=== PATIENT | male | born 1985 | race Caucasian/White ===

== ENCOUNTER 2016-07-19 23:58 | Emergency (ER) | payer OTHER ==
--- NOTE | 2016-07-20 00:24 | PDOC ---
History of Present Illness - General Stated Complaint: FATIGUE/LACK OF SLEEP Past History - Past Medical History Allergies/Adverse Reactions: Allergies Allergy/AdvReac Type Severity Reaction Status Date / Time morphine Allergy Unknown Rash Verified 07/20/16 01:24 Home Medications: Ambulatory Orders NK [No Known Home Medication] 07/20/16 ED Treatment Course - LABORATORY CBC & Chemistry Diagram: 07/20/16 01:50 07/20/16 01:50
[2016-07-20 01:24] VITALS: PULSE 82; TEMP 98.1
--- NOTE | 2016-07-20 01:25 | PDOC ---
History of Present Illness - General Chief Complaint: Cold Symptoms Stated Complaint: FATIGUE/LACK OF SLEEP Time Seen by Provider: 07/20/16 00:41 History Source: Patient Exam Limitations: No Limitations - History of Present Illness Initial Comments: 07/20/16 01:20 30yo Male patient with no past medical history presents to ED c/o low energy level, not able to concentrate, inability to sleep, decrease in appetite for past "few" weeks. Patient states he does not have a PCP and he is not depressed. He denies CP, Abd pain, Back pain, n/v/d, fever, or any other complaints at this time. Past History - Travel Traveled outside of the country in the last 30 days: No Close contact w/someone who was outside of country & ill: No - Past Medical History Allergies/Adverse Reactions: Allergies Allergy/AdvReac Type Severity Reaction Status Date / Time morphine Allergy Unknown Rash Verified 07/20/16 01:24 Home Medications: Ambulatory Orders Cephalexin Monohydrate [Keflex -] 500 mg PO BID #20 capsule 07/20/16 Review of Systems - Review of Systems Able to Perform ROS?: Yes Is the patient limited Chinese proficient: No Constitutional: Yes: Loss of Appetite, Malaise. No: Chills, Diaphoresis, Fever , Night Sweats HEENTM: No: Nose Congestion, Nose Bleeding, Throat Pain, Throat Swelling, Difficulty Swallowing, Mouth Swelling Respiratory: No: Cough, Shortness of Breath, Stridor, Wheezing Cardiac (ROS): No: Chest Pain, Edema, Palpitations, Syncope, Chest Tightness ABD/GI: No: Constipated, Diarrhea, Nausea, Poor Appetite, Poor Fluid Intake, Vomiting, Abdominal cramping : No: Burning, Dysuria, Flank Pain, Hematuria Musculoskeletal: No: Back Pain Neurological: No: Headache, Seizure, Unsteady Gait, Ataxia Psychiatric: Yes: Sleep Pattern Change, Change in Appetite All Other Systems: Reviewed and Negative *Physical Exam - Physical Exam General Appearance: Yes: Nourished, Appropriately Dressed, Apparent Distress. No: Disheveled, Mild Distress, Moderate Distress, Severe Distress HEENT: positive: EOMI, JUAN, Normal ENT Inspection, Normal Voice, Symmetrical, TMs Normal, Pharynx Normal. negative: Pharyngeal Erythema, Tonsillar Exudate, Tonsillar Erythema, Nasal Congestion, Rhinorrhea, Sinus Tenderness, TM Bulging, TM Dull, TM Erythema Neck: positive: Trachea midline, Normal Thyroid, Supple. negative: Decreased range of motion, Stridor, Lymphadenopathy (R), Lymphadenopathy (L) Respiratory/Chest: positive: Lungs Clear, Normal Breath Sounds. negative: Chest Tender, Respiratory Distress, Accessory Muscle Use, Labored Respiration, Rapid RR, Crackles, Rales, Rhonchi, Stridor, Wheezing Cardiovascular: positive: Regular Rhythm, Regular Rate Gastrointestinal/Abdominal: positive: Normal Bowel Sounds, Soft. negative: Distended, Guarding, Rebound, Tenderness Musculoskeletal: positive: Normal Inspection. negative: CVA Tenderness, Decreased Range of Motion, Vertebral Tenderness Extremity: positive: Normal Capillary Refill, Normal Inspection, Normal Range of Motion. negative: Pedal Edema, Swelling, Calf Tenderness, Erythema, Inflammation Integumentary: positive: Normal Color, Dry, Warm. negative: Rash, Swelling, Bruising Neurologic: positive: clinical nursing manager II-XII NML intact, Fully Oriented, Alert, Normal Mood/ Affect, Normal Response, Motor Strength 06/20 ED Treatment Course - LABORATORY CBC & Chemistry Diagram: 07/20/16 01:50 07/20/16 01:50 *DC/Admit/Observation/Transfer Diagnosis at time of Disposition: Hematuria - Discharge Dispostion Disposition: HOME Condition at time of disposition: Stable Admit: No - Prescriptions Prescriptions: Cephalexin Monohydrate [Keflex -] 500 mg PO BID #20 capsule - Referrals Referrals: Aram Garcia MD [Staff Physician] - Esme Geronimo MD [Staff Physician] - - Patient Instructions Printed Discharge Instructions: DI for Hematuria Additional Instructions: FOLLOW UP WITH DR. GARCIA (UROLOGY) REGARDING BLOOD IN URINE. TAKE MEDICATIONS PRESCRIBED. ALSO, FOLLOW UP WITH DR. GERONIMO (INTERNAL MEDICINE) TO ESTABLISH CARE DISCUSSED FOR FURTHER TESTING. RETURN IF SYMPTOM WORSEN OR ANY CONCERNS FOR FURTHER EVALUATION. Print Language: HUNGARIAN
[2016-07-20 01:58] LABS: BASOPHIL 0.7 % (0-2.0); EOSINOPHIL 1.4 % (0-4.5); MCHC 32.3 g/dl (32.0-35.9); MEAN CELL VOLUME 77.4 fl (80-96); MEAN PLT VOLUME 8.3 fl (7.5-11.1); NEUTROPHILS 30.1 % (42.8-82.8); PLATELET COUNT 259 K/MM3 (134-434); RDW 13.6 % (11.9-15.9); WHITE BLOOD COUNT 6.5 K/mm3 (4.0-10.0)
[2016-07-20 02:35] LABS: ALBUMIN 4.2 g/dl (3.4-5.0); ANION GAP 11 (8-16); BILIRUBIN,TOTAL 0.2 mg/dL (0.2-1.0); CALCIUM 9.8 mg/dL (8.5-10.1); CO2 28 mmol/L (21-32); COCKROFT - GAULT 111.25; CREATININE 1.1 mg/dL (0.7-1.3); GLUCOSE,RANDOM 89 mg/dL (74-106); SGOT/AST 24 U/L (15-37); SGPT/ALT 33 U/L (12-78); TOT PROT 7.8 g/dl (6.4-8.2)
[2016-07-20 02:36] LABS: ALK PHOS 89 U/L (45-117)
[2016-07-20 02:51] LABS: URINE APPEARANCE SLCLOUDY; URINE BILIRUBIN NEGATIVE (NEGATIVE); URINE COLOR LTYELLOW; URINE GLUCOSE (UA) NEGATIVE (NEGATIVE); URINE KETONE NEGATIVE (NEGATIVE); URINE NITRITE NEGATIVE (NEGATIVE); URINE UROBILINOGEN NEGATIVE E.U./dl (0.2-1.0)
[2016-07-20 02:55] LABS: URINE BLOOD 3+ (NEGATIVE); URINE LEUK ESTERASE 1+ (NEGATIVE); URINE PROTEIN 2+ (NEGATIVE)
[2016-07-20 02:59] LABS: URINE MUCUS RARE; URINE RBC 162 /hpf (0-3); URINE WBC 102 /hpf (3-5)
[2016-07-20 03:38] LABS: URINE MARIJUANA THC NEGATIVE ng/ml (CUTOFF=50)
[2016-07-20] MEDS ORDERED: CEPHALEXIN MONOHYDRATE 500 MG CAPSULE (UD) PO ONE (03:57)
[2016-07-20] MEDS ORDERED: CEPHALEXIN MONOHYDRATE 250 MG CAPSULE (FP) ONE (04:07)
[2016-07-20 04:17] VITALS: BP 132/78
== END 2016-07-20 04:10 | disposition home or self-care (01) ==
LOC: JER 23:58
DX: R31.9 Hematuria, unspecified (principal)
CPT/HCPCS: 36415; 80053; 80307; 81003; 81015; 82550; 84443; 85025; 99282-25

== ENCOUNTER 2016-07-29 23:59 | Emergency (ER) | payer BC, OTHER ==
[2016-07-30 00:37] VITALS: BP 127/58; PULSE 58; TEMP 98
--- NOTE | 2016-07-30 01:06 | PDOC ---
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 Patient reports the episode lasted for 20 minutes. Patient states the last panic attack he had was 5 years ago and moved back to the . Patient reports his last panic attack occurred when he was working and studying and wasnt taking good care of himself. Patient reports he recently moved back to the . PCP: Dr. 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) - Psycho/Social/Smoking Cessation Hx Suicidal Ideation: No Smoking History: Never smoked Have you smoked in the past 12 months: No Information on smoking cessation initiated: No Hx Alcohol Use: No Drug/Substance Use Hx: No <Nelly Miller - Last Filed: 07/30/16 01:53> <Carlota Russell - Last Filed: 07/30/16 01:57> - Past Medical History Allergies/Adverse Reactions: Allergies Allergy/AdvReac Type Severity Reaction Status Date / Time morphine Allergy Unknown Rash Verified 07/30/16 01:05 Home Medications: Ambulatory Orders Alprazolam [Xanax] 0.5 mg PO DAILY PRN #4 tablet MDD 1 07/30/16 Oxybutynin Chloride [Ditropan Xl] 10 mg PO DAILY 07/30/16 Review of Systems - Review of Systems Able to Perform ROS?: Yes Comments:: CONSTITUTIONAL: Absent: fever, no chills, no fatigue EYES: Absent: visual changes ENT: Absent: ear pain, no sore throat CARDIOVASCULAR: Absent: chest pain, no palpitations RESPIRATORY: Absent: cough, no SOB GI: Absent: abdominal pain, no nausea, no vomiting, no constipation, no diarrhea GENITOURINARY: Absent: dysuria, no frequency, no hematuria MUSKULOSKELETAL: Absent: back pain, no arthralgia, no myalgia SKIN: Absent: rash PSYCH: +panic attack NEURO: Absent: headache <Carlota Russell - Last Filed: 07/30/16 01:57> *Physical Exam - Vital Signs Last Vital Signs Temp Pulse Resp BP Pulse Ox 98 F 58 L 17 127/58 98 07/30/16 00:07/30/16 00:07/30/16 00:07/30/16 00:07/30/16 00:55 <Nelly Miller - Last Filed: 07/30/16 01:53> - Vital Signs Last Vital Signs Temp Pulse Resp BP Pulse Ox 98 F 58 L 17 127/58 98 07/30/16 00:26 07/30/16 00:26 07/30/16 00:07/30/16 00:07/30/16 00:55 - Physical Exam Comments: GENERAL: Well-appearing, well-nourished. No apparent distress. HEENT: Normocephalic, atraumatic. PERRL, EOM intact. CARDIOVASCULAR: Normal S1, S2. Regular rate and rhythm. PULMONARY: Clear to auscultation bilaterally. ABDOMEN: Soft, non-distended, non-tender. EXTREMITIES: Normal ROM in all four extremities. No gross deformities. SKIN: Warm, dry. No rash NEUROLOGICAL: No focal neurological deficits. <Carlota Russell - Last Filed: 07/30/16 01:57> Medical Decision Making - Medical Decision Making 07/30/16 01:54 pt has no suicidal ideology or homicidal ideology -he had a prior panic attack some time ago -his PCP is DR Baker -discussed outpt therapy at either [facility] or [facility] with him /given xanax tonight -pt is going home with his cousin, not driving himself <Nelly Miller - Last Filed: 07/30/16 01:53> *DC/Admit/Observation/Transfer <Nelly Miller - Last Filed: 07/30/16 01:53> - Attestations Scribe Attestion: Documentation prepared by Carlota Russell, acting as medical center director for Nelly Miller MD/DO. <Carlota Russell - Last Filed: 07/30/16 01:57> Diagnosis at time of Disposition: Panic attack - Discharge Dispostion Disposition: HOME Condition at time of disposition: Stable - Prescriptions Prescriptions: Alprazolam [Xanax] 0.5 mg PO DAILY PRN #4 tablet MDD 1 PRN Reason: Anxiety - Referrals Referrals: Kirby Baker MD [Primary Care Provider] - - Patient Instructions Printed Discharge Instructions: DI for Panic Disorder Additional Instructions: please follow up with a therapist
[2016-07-30] MEDS ORDERED: ALPRAZolam 0.25 MG TABLET PO STA (01:46)
[2016-07-30] MEDS ORDERED: ALPRAZolam 0.25 MG TABLET ONE (01:49)
== END 2016-07-30 01:52 | disposition home or self-care (01) ==
LOC: JER 23:59
DX: F41.0 Panic disorder [episodic paroxysmal anxiety] (principal); F41.8 Other specified anxiety disorders; Z85.9 Personal history of malignant neoplasm, unspecified
CPT/HCPCS: 99282-25